=== PATIENT | female | born 1990 | race Caucasian/White ===

== ENCOUNTER → 2020-07-03 14:56 | Outpatient (CLI) | payer BC, SELFPAY ==
--- NOTE | ~2020-07-03 | US_ITS ---
EXAMINATION: US OB follow up EXAM DATE: 07/03/2020 15:27 INDICATION: anatomy, estimated weight. 2nd trimester. TECHNIQUE: Pelvic obstetrical transabdominal sonogram was performed by a technologist. There are mu ltiple grayscale and Doppler images available for interpretation. There are no prior studies for james zaragoza. FINDINGS: There is a single fetus identified in breech presentation with a heart rate of 146 beats pe r minute. The placenta is located in the anterior position. There is no sonographic evidence of retr oplacental hemorrhage identified. Placental margin to internal cervical os distance is 6.9 cm. Subje ctively expected amount of amniotic fluid. BIOMETRIC DATA: Biparietal diameter (BPD): 6.4cm ----------------> 26 weeks 0 days. Head circumference (HC): 23.5 cm ----------------> 5 weeks 4 days. Abdominal circumference (AC): 21.5 cm ----------> 26 weeks 0 days. Femur length (FL): 4.5 cm --------------------------> 25 weeks 0 days. These measurements are concordant. HC/AC ratio is 1.10 (The 5th -- 95th percentile range is 1.04-1.22. Estimated weight is 826 g +/- 124 g. This is the 39th percentile when the currently reported c linical gestation age 25 weeks 4 days, clinical estimated date of delivery (ANTHONY-OPE) 10/12/2020 is used . estimated gestational age based on measurements from this exam is 25 weeks 5 days, with an es timated date of delivery (ANTHONY-AUA) 10/11. Some additional anatomy was requested. Sonographically normal-appearing lips and nose, four-pam mber heart, three-vessel cord, legs and feet. IMPRESSION: 1. Single fetus in breech presentation with heart rate 146 beats per minute. 2. Estimated weight of 826 grams, 39th percentile using the currently reported clinical gestat ion age of 25 weeks 4 days, ANTHONY(OPE) 10/12/2020. 3. Additional anatomy confirmed as above. Reviewed, dictated and finalized at location B. COUNTER IMPRESSION: 1. Single fetus in breech presentation with heart rate 146 beats per minute. 2. Estimated weight of 826 grams, 39th percentile using the currently re ported clinical gestation age of 25 weeks 4 days, ANTHONY(OPE) 10/12/2020. 3. Additional anatomy confirmed as above.
== END ==
PROVIDERS: Visit Provider Obstetrics & Gynecology
DX: Z36.9 Encounter for antenatal screening, unspecified (principal); Z3A.25 25 weeks gestation of pregnancy
CPT/HCPCS: 76816

== ENCOUNTER 2020-09-06 08:41 | Observation (INO) | payer BC, SELFPAY ==
[2020-09-06] VITALS (9 sets, daily range): BP systolic 123–152; BP diastolic 74–97; PULSE 79–89; TEMP 36.6; BMI 34.4
--- NOTE | 2020-09-06 10:00 | P.PNOB_ITS ---
OB - Triage/Final Diagnosis Visit Information Date of evaluation: 09/06/20 Reason for evaluation: threatened labor Comments/Additional reasons for admission: I have assessed the risk for this patient, Shivani Carlson, and determined that [facility] Evaluation Vital signs: Vital Signs - 24 hr 09/06/20 09:06 09/06/20 09:15 09/06/20 09:30 Pulse Rate 80 89 86 Blood Pressure 138/97 H 142/81 H 148/79 H 09/06/20 09:45 Pulse Rate 85 Blood Pressure 152/95 H
[2020-09-06 10:05] LABS: Add Urine Microscopic? YES; Appearance Urine Cloudy (Clear); Bacteria Urine Trace /hpf; Bilirubin Urine Negative (Negative); Blood Urine Negative (Negative); Color Urine Yellow (Yellow); Glucose Urine UA Negative (Negative); Ketones Urine Negative (Negative); Leukocyte Esterase Ur Negative LEU/UL (Negative); Mucus Urine Rare /lpf; Nitrate Urine Negative (Negative); Protein Urine Negative (Negative); RBC Urine 0-2 /hpf (0-2); Specific Grav Ur 1.013 (1.001-1.035); Squamous Epithelial Cell Urine Moderate /hpf (Few); Urobilinogen Urine Negative mg/dL (<2.0); WBC Urine 0-3 /hpf
--- NOTE | 2020-09-06 10:23 | PC.NURSE ---
0958-Dr.Dalla Liu called, informed pt came in from the ER with c/o lower abdominal pain. Pt has had a couple contractions with some irritability that she is PO hydrating for. Informed of elevated bp's, orders received to send [facility] labs.
[2020-09-06 10:32] LABS: Basophils Percent Auto 0.3 % (0.2-1.2); Eosinophils Absolute Auto 0.3 K/mm3 (0-0.3); Eosinophils Percent Auto 2.5 % (0-4.4); Hematocrit 35.3 % (37.0-47.0); Hemoglobin 11.8 g/dL (12.0-15.0); Immature Granulocyte Absolute 0.14 K/mm3 (0.00-0.031); Immature Granulocyte Percent A 1.2 % (0-0.5); Lymphocytes Percent Auto 21.4 % (18.3-44.2); Mean Corpuscular HGB Conc 33.4 g/dl (32-36); Mean Corpuscular Hemoglobin 27.7 pg (26-34); Mean Corpuscular Volume 82.9 fl (80-100); Mean Platelet Volume 10.1 fl (7.4-10.4); Monocytes Absolute Auto 0.8 K/mm3 (0.1-0.6); Monocytes Percent Auto 7.1 % (2.6-8.5); Neutrophils Absolute Auto 7.6 K/mm3 (1.3-6.7); Neutrophils Percent Auto 67.5 % (45.5-73.1); Platelet Count Result 244 k/mm3 (150-375); Red Blood Count 4.26 M/mm3 (4.2-5.4); Red Cell Distribution Width 13.6 % (11.5-14.5); White Blood Count 11.2 K/mm3 (4.5-10.0)
[2020-09-06 10:45] LABS: Alanine Aminotransferase 26 U/L (4-35); Albumin Level 3.6 g/dL (3.5-5.1); Alkaline Phosphatase 118 U/L (38-126); Anion Gap 6 mmol/L (8-16); Aspartate Amino Transferase 25 U/L (14-36); Bilirubin,Total 0.2 mg/dL (0.2-1.3); Blood Urea Nitrogen 6 mg/dL (7-17); Calcium 8.8 mg/dL (8.4-10.2); Carbon Dioxide 22 mmol/L (22-30); Chloride 107 mmol/L (98-107); Estimated Glomerular Filt Rate > 60; Glucose 91 mg/dL (65-105); Potassium 3.9 mmol/L (3.4-5.0); Sodium 135 mmol/L (137-145); Uric Acid 4.1 mg/dL (2.5-7.5)
[2020-09-06 10:50] LABS: Creatinine Urine 46.7 mg/dL; Total Protein Urine Random 12 mg/dL; Ur Ttl Prot Creatinine Ratio 0.26 mg/mg (0-0.20)
--- NOTE | 2020-09-06 11:19 | OBADM ---
This patient, Shivani Carlson, admitted to the OB room OB Post 117 for observation. Patient/family oriented to hospital policies and general routines including ID bracelet, bed and alarms, visiting hours, pain management, procedures, bathroom and other care routines, personal items, smoking policy, room service/diet, and visiting hours. Patient/Family are encouraged to report perceived risks to care and to ask questions if they do not understand what they are told or what they should do.
--- NOTE | 2020-09-06 11:24 | PC.NURSE ---
1104-Dr.Dalla Liu called with lab results and bp's, order received to discharge pt home.
== END 2020-09-06 11:15 | disposition home or self-care (01) ==
PROVIDERS: Admitting Provider Obstetrics & Gynecology; Visit Provider Obstetrics & Gynecology
DX: O47.03 False labor before 37 completed weeks of gestation, third trimester (principal); Z3A.34 34 weeks gestation of pregnancy
CPT/HCPCS: 36415; 80053; 81001; 82570; 84156; 84550; 85025; G0378; G0379

== ENCOUNTER 2020-09-30 16:10 | Inpatient (IN) | payer BC, SELFPAY ==
[2020-09-30] VITALS (27 sets, daily range): BP systolic 92–152; BP diastolic 63–122; PULSE 83–149; TEMP 36.5–36.8; BMI 34.2
[2020-09-30 17:37] LABS: Basophils Percent Auto 0.2 % (0.2-1.2); Eosinophils Absolute Auto 0.1 K/mm3 (0-0.3); Eosinophils Percent Auto 1.1 % (0-4.4); Hematocrit 36.4 % (37.0-47.0); Hemoglobin 12.4 g/dL (12.0-15.0); Immature Granulocyte Absolute 0.06 K/mm3 (0.00-0.031); Immature Granulocyte Percent A 0.6 % (0-0.5); Lymphocytes Absolute Auto 1.94 K/mm3 (0.9-3.2); Lymphocytes Percent Auto 20.1 % (18.3-44.2); Mean Corpuscular HGB Conc 34.1 g/dl (32-36); Mean Corpuscular Hemoglobin 27.4 pg (26-34); Mean Corpuscular Volume 80.5 fl (80-100); Mean Platelet Volume 10.3 fl (7.4-10.4); Monocytes Absolute Auto 0.6 K/mm3 (0.1-0.6); Monocytes Percent Auto 5.8 % (2.6-8.5); Neutrophils Percent Auto 72.2 % (45.5-73.1); Platelet Count Result 226 k/mm3 (150-375); Red Blood Count 4.52 M/mm3 (4.2-5.4); Red Cell Distribution Width 13.4 % (11.5-14.5); White Blood Count 9.6 K/mm3 (4.5-10.0)
--- NOTE | 2020-09-30 17:38 | LDADM ---
This patient, Shivani Carlson, was admitted to Labor/Delivery/Recovery 105 on 09/30/20 at 16:10. Plans for labor, pain management and were discussed with patient. Patient/family oriented to hospital policies and general routines including ID bracelet, bed and alarms, visiting hours, pain management, procedures, bathroom and other care routines, personal items, smoking policy, room service/diet and guest tray routines, infant security routines, and visiting hours. Patient/Family are encouraged to report perceived risks to care and to ask questions if they do not understand what they are told or what they should do. See OBIX for further documentation.
[2020-09-30 17:48] LABS: Alanine Aminotransferase 72 U/L (4-35); Albumin Level 3.6 g/dL (3.5-5.1); Alkaline Phosphatase 169 U/L (38-126); Anion Gap 5 mmol/L (8-16); Aspartate Amino Transferase 56 U/L (14-36); Bilirubin,Total 0.3 mg/dL (0.2-1.3); Blood Urea Nitrogen 5 mg/dL (7-17); Calcium 8.9 mg/dL (8.4-10.2); Carbon Dioxide 19 mmol/L (22-30); Chloride 109 mmol/L (98-107); Estimated CRCL calculation 145 ml/min; Estimated Glomerular Filt Rate > 60; Glucose 93 mg/dL (65-105); Potassium 3.6 mmol/L (3.4-5.0); Sodium 133 mmol/L (137-145); Uric Acid 4.6 mg/dL (2.5-7.5)
[2020-09-30 19:06] LABS: Benzodiazepines Screen Urine Negative (Negative)
[2020-09-30 19:09] LABS: Barbiturate Screen Urine Positive (Negative)
[2020-09-30 19:11] LABS: Amphetamine Screen Urine Negative (Negative); Cannabinoid Screen Urine Positive (Negative); Cocaine Screen Urine Negative (Negative); Methadone Screen Urine Negative (Negative); Opiate Screen Urine Negative (Negative); Phencyclidine Screen Urine Negative (Negative)
--- NOTE | 2020-09-30 19:24 | WPDANESEPP ---
Anes - Eval Pre Procedure Procedure: Laboe epidural Date/Time: 09/30/20 19:24 Surgeon: Jhonny Preop Diagnosis: Abd pain with contractions Pre Op Diagnosis: Leaking Patient Data Age: 30 Gender: F Height: 5 ft 3 in Weight: 87.5 kg Last Vital Signs Temp 97.9 F 09/30/20 18:35 Pulse 93 09/30/20 18:15 BP 148/90 H 09/30/20 18:15 Allergies Allergy/AdvReac Type Severity Reaction Status Date / Time No Known Allergies Allergy Verified 09/17/20 15:39 Home Medications Medication Instructions Recorded Confirmed Type PNV cmb#95-ferrous fumarate-FA 1 tablet PO DAILY 09/17/20 09/30/20 History [] Laboratory Tests 09/30/20 09/30/20 09/30/20 17:29 17:29 17:29 WBC 9.6 K/mm3 K/mm3 (4.5-10.0) RBC 4.52 M/mm3 M/mm3 (4.2-5.4) Hgb 12.4 g/dL g/dL (12.0-15.0) Hct 36.4 % L % (37.0-47.0) MCV 80.5 fl fl (80-100) MCH 27.4 pg pg (26-34) MCHC 34.1 g/dl g/dl (32-36) RDW 13.4 % % (11.5-14.5) Plt Count 226 k/mm3 k/mm3 (150-375) MPV 10.3 fl fl (7.4-10.4) Immature Gran % (Auto) 0.6 % H % (0-0.5) Neut % (Auto) 72.2 % % (45.5-73.1) Lymph % (Auto) 20.1 % % (18.3-44.2) Andrew % (Auto) 5.8 % % (2.6-8.5) Eos % (Auto) 1.1 % % (0-4.4) Baso % (Auto) 0.2 % % (0.2-1.2) Lymph # (Auto) 1.94 K/mm3 K/mm3 (0.9-3.2) Andrew # (Auto) 0.6 K/mm3 K/mm3 (0.1-0.6) Eos # (Auto) 0.1 K/mm3 K/mm3 (0-0.3) Baso # (Auto) 0.0 K/mm3 K/mm3 (0.0-0.1) Abs Immat Gran (auto) 0.06 K/mm3 H K/mm3 (0.00-0.031) Absolute Neuts (auto) 7.0 K/mm3 H K/mm3 (1.3-6.7) Absolute Nucleated RBC 0.0 K/mm3 K/mm3 (0.0-0.012) Nucleated RBC % 0.0 % % (0.0-0.2) Sodium Potassium Chloride Carbon Dioxide Anion Gap BUN Creatinine Estim Creat Clear Calc Estimated GFR Glucose Uric Acid Cancelled Calcium Total Bilirubin AST ALT Alkaline Phosphatase Total Protein Albumin Urine Opiates Screen Urine Methadone Screen Ur Barbiturates Screen Ur Phencyclidine Scrn Ur Amphetamine Screen U Benzodiazepines Scrn Urine Cocaine Screen U Cannabinoids Screen RPR Pending Blood Type Antibody Screen 09/30/20 09/30/20 09/30/20 17:29 17:29 18:36 WBC RBC Hgb Hct MCV MCH MCHC RDW Plt Count MPV Immature Gran % (Auto) Neut % (Auto) Lymph % (Auto) Andrew % (Auto) Eos % (Auto) Baso % (Auto) Lymph # (Auto) Andrew # (Auto) Eos # (Auto) Baso # (Auto) Abs Immat Gran (auto) Absolute Neuts (auto) Absolute Nucleated RBC Nucleated RBC % Sodium 133 mmol/L L mmol/L (137-145) Potassium 3.6 mmol/L mmol/L (3.4-5.0) Chloride 109 mmol/L H mmol/L (98-107) Carbon Dioxide 19 mmol/L L mmol/L (22-30) Anion Gap 5 mmol/L L mmol/L (8-16) BUN 5 mg/dL L mg/dL (7-17) Creatinine 0.50 mg/dL L mg/dL (0.7-1.0) Estim Creat Clear Calc 145 ml/min ml/min Estimated GFR > 60 (59 - ) Glucose 93 mg/dL mg/dL (65-105) Uric Acid 4.6 mg/dL mg/dL (2.5-7.5) Calcium 8.9 mg/dL mg/dL (8.4-10.2) Total Bilirubin 0.3 mg/dL mg/dL (0.2-1.3) AST 56 U/L H U/L (14-36) ALT
--- NOTE | 2020-09-30 19:40 | PC.NURSE ---
uds results discussed w pt. pt states pt has been taking fioricet and admitts to smoking marijuana during pregnency. pt denies using any additonal substances.
--- NOTE | 2020-09-30 19:43 | PC.NURSE ---
order received to collect urinalysis from osborn catheter post epidural
[2020-09-30] MEDS: LACTATED RINGERS 1,000 ML 125 ML IV CONT (21:29)
[2020-09-30] MEDS: OXYTOCIN 30 UNITS/NS 500 ML 30 UNITS/500 ML BAG 6 UNITS IV CONT (21:29)
[2020-09-30] MEDS: fentaNYL CITRATE INJ (*CRX) 100 MCG/2 ML VIAL 50 MCG IV PUSH (23:49)
[2020-10-01] VITALS (150 sets, daily range): BP systolic 95–181; BP diastolic 46–132; PULSE 45–166; RESP 14–16; TEMP 36.2–37.5; O2SAT 84–100
[2020-10-01] MEDS: LACTATED RINGERS 1,000 ML 125 ML IV CONT ×2 (00:38→02:21)
[2020-10-01 04:56] LABS: Add Urine Microscopic? YES; Appearance Urine Cloudy (Clear); Bacteria Urine Trace /hpf; Bilirubin Urine Negative (Negative); Blood Urine Negative (Negative); Calcium Oxalate Crystals Urine Present /hpf; Color Urine Yellow (Yellow); Glucose Urine UA Negative (Negative); Ketones Urine 1+ mg/dL (Negative); Leukocyte Esterase Ur Negative LEU/UL (NEGATIVE); Mucus Urine Few /lpf; Nitrate Urine Negative (Negative); Protein Urine 1+ mg/dL (Negative); RBC Urine 0-2 /hpf (0-2); Specific Grav Ur 1.021 (1.001-1.035); Squamous Epithelial Cell Urine Occasional /hpf (Few); WBC Urine 0-3 /hpf (0-3)
[2020-10-01] MEDS: ONDANSETRON INJ 4 MG/2 ML VIAL IV PUSH (05:41)
--- NOTE | 2020-10-01 06:38 | PM.IMHP ---
H&P: HPI History of Present Illness Date/Time: 10/01/20 06:38 Patient presents at term in active labor with spontaneous rupture membranes prior to admission. Her labor has been unremarkable thus far Chief Complaint: labor at term Review of Systems Review of Systems: All systems reviewed & are unremarkable except as noted in HPI and below PMFSH Past Medical History Medical History Depression History of smoking Over weight and not yet delivered Seizure Surgical History Surgical History S/P cholecystectomy Family History Family History Other No pertinent family history Social History Social History Smoking status: Former smoker Second hand tobacco smoke exposure: Yes Smoking end date: 02/09/20 Substance use: current Gender identity (if verbalized by the patient): Female Spiritual care concerns: No Meds Home Medications and Allergies Home Medications Medication Instructions Recorded Confirmed Type PNV cmb#95-ferrous fumarate-FA 1 tablet PO DAILY 09/17/20 09/30/20 History [] Allergies Allergy/AdvReac Type Severity Reaction Status Date / Time No Known Allergies Allergy Verified 09/17/20 15:39 Vital Signs Vital Signs - 24 hr 09/30/20 16:38 09/30/20 16:45 09/30/20 16:55 Temperature 97.8 F Pulse Rate 97 106 H Blood Pressure 145/97 H 151/97 H Pulse Oximetry 09/30/20 17:00 09/30/20 17:46 09/30/20 18:00 Temperature Pulse Rate 104 H 97 112 H Blood Pressure 137/97 H 125/63 134/92 H Pulse Oximetry 09/30/20 18:15 09/30/20 18:35 09/30/20 19:29 Temperature 97.9 F Pulse Rate 93 90 Blood Pressure 148/90 H 151/102 H Pulse Oximetry 09/30/20 19:31 09/30/20 19:46 09/30/20 20:30 Temperature 98.2 F Pulse Rate 98 84 Blood Pressure 143/122 H 136/85 Pulse Oximetry 09/30/20 20:54 09/30/20 21:01 09/30/20 21:15 Temperature Pulse Rate 97 90 109 H Blood Pressure 135/85 114/97 H 132/95 H Pulse Oximetry 09/30/20 21:31 09/30/20 21:45 09/30/20 22:01 Temperature Pulse Rate 104 H 93 83 Blood Pressure 135/96 H 141/94 H 136/91 H Pulse Oximetry 09/30/20 22:06 09/30/20 22:16 09/30/20 22:31 Temperature 98.3 F Pulse Rate 83 86 86 Blood Pressure 136/91 H 135/76 152/83 H Pulse Oximetry 09/30/20 22:46 09/30/20 22:55 09/30/20 23:01 Temperature 97.7 F Pulse Rate 90 149 H Blood Pressure 142/85 H 92/73 L Pulse Oximetry 09/30/20 23:15 09/30/20 23:31 09/30/20 23:46 Temperature Pulse Rate 89 88 83 Blood Pressure 118/86 125/106 H 142/87 H Pulse Oximetry 10/01/20 00:01 10/01/20 00:16 10/01/20 00:31 Temperature Pulse Rate 93 73 82 Blood Pressure 145/87 H 144/86 H 142/91 H Pulse Oximetry 10/01/20 00:36 10/01/20 00:41 10/01/20 00:42 Temperature Pulse Rate 71 91 Blood Pressure 154/132 H 158/96 H Pulse Oximetry 100 100 10/01/20 00:46 10/01/20 00:47 10/01/20 00:49 Temperature Pulse Rate 93 82 90 Blood Pressure 157/101 H 154/84 H 149/84 H Pulse Oximetry 99 10/01/20 00:51 10/01/20 00:52 10/01/20 00:54 Temperature Pulse Rate 96 81 94 Blood Pressure 142/76 H 151/88 H 153/105 H Pulse Oximetry 100 10/01/20 00:55 10/01/20 00:56 10/01/20 00:57 Temperature Pulse Rate 86 101 H Blood Pressure 145/82 H 131/77 Pulse Oximetry 98 10/01/20 00:58 10/01/20 01:00 10/01/20 01:01 Temperature Pulse Rate 84 100 Blood Pressure 140/91 H 143/84 H Pulse Oximetry 98 10/01/20 01:03 10/01/20 01:06 10/01/20 01:08 Temperature Pulse Rate 105 H 99 101 H Blood Pressure 138/73 134/77 133/82 Pulse Oximetry 99 98 10/01/20 01:10 10/01/20 01:13 10/01/20 01:15 Temperature Pulse Rate 102 H 123 H 116 H Blood Pressu
--- NOTE | 2020-10-01 07:01 | PM.OBPRVD ---
OB - Delivery Note Procedure Delivery date: 10/01/20 Intrapartal events: None Induction method: none Delivery monitor: external FHT Route of delivery: Episiotomy description: None Laceration Description: None Specimen: No Quantitative Blood Loss (ml): 58 Disposition: floor Baby Date of : 10/01/20 Time of : 06:52 Weeks of gestation at delivery: 39 Infant gender: Female Weight (pounds): 6 Weight (ounces): 6 presentation: vertex position: Right Occiput Anterior Placenta delivery description: Spontaneous cord vessel description: 3 Vessels score one minute: 9 score five minutes: 9
[2020-10-01] MEDS: OXYTOCIN 30 UNITS/NS 500 ML 30 UNITS/500 ML BAG 125 UNITS IV CONT (07:18)
[2020-10-01] MEDS: IBUPROFEN 600 MG TABLET PO ×3 (08:54→20:25)
[2020-10-01] MEDS: MULTIVIT/MIN/PREN/FOL AC/IRON TABLET 1 TAB PO (08:54)
[2020-10-01] MEDS: WITCH HAZEL 40 PADS 1 PAD TOPICAL (08:56)
[2020-10-01 09:27] LABS: Rapid Plasma Reagin Non-Reactive (NonReactive)
--- NOTE | 2020-10-01 10:04 | OBPPTRN ---
0923 Patient transferred to post room #285 via W/C. Support person present. Oriented to unit, room, information board, rooming in, admission packet and security measures. Patient verbalizes understanding.
--- NOTE | 2020-10-01 10:10 | PC.NURSE ---
Mother called out for assist with feeding. Mother reports she struggled with latch for first feeding. Nipples have low profile, demonstrated how to roll out before latch. Reviewed feeding cues, frequencies, duration of feedings, feeding elimination flow sheet, and signs of adequate intake. Demonstrated stimulation techniques to wake for feeding. Assisted with to breast. Reviewed positioning/alignment in cross cradle, holding breast in ?U? hold and guided asymmetrical latch on. Several attempts before able to latch correctly. nursed sleepily at first with occasional swallowing noted. Ad vised to stimulate while feeding, infant increased to good rhythmic draws with freq swallowing noted. Reviewed signs of a correct latch, effective nursing and suck swallow ratio. was able to maintain latch without discomfort to mother. would slip to shallow latch, mother reports tenderness. Demonstrated how to adjust latch more deeply while feeding. Mother reports she can feel change in latch and has no tenderness. Nipple care reviewed of lanolin after feedings, warm compresses and gel pads as needed. Suggested mother stimulate while feeding to increase stimulate, increase intake and to assist with maintaining deep latch. Instructed mother to call out for RN assistance if she is unable to latch for feeding or she has discomfort with nursing. Instructed feeding should be initiated three hours from start of last feeding or if feeding cues are noted before. Mother voiced understanding of information shared.
--- NOTE | 2020-10-01 13:50 | PC.NURSE ---
1530 Upon entering mother making eager attempts to latch . Assisted with infant to breast. Reviewed positioning/alignment in cross cradle, holding breast in ?U? hold and guided asymmetrical latch on. Several attempts infant unable to draw nipple in deeply for correct latch. Right nipple has a low profile and will draw back in if had is placed to close to areola. Football and attempt to left breast unsuccessful. Infant tends to keep tongue up and not allow nipple in for deep latch. Offered and explained the nipple shield. Nipple shield provided to mother due to ineffective latch. Instructions given on application and cleaning of shield. Discussed nipple shield precautions and possible complications. Patient able to return demonstration on proper application of shield. Discussed the need to initiate pumping if infant continues to nurse with the shield. Patient verbalizes understanding. With shield in place, infant was able to latch deeply. Infant nursed eagerly, with steady draws and frequent swallowing for bursts followed with long pausing. Reviewed signs of a correct latch, effective nursing and suck swallow ratio. Suggested mother stimulate while feeding to increase stimulate, increase intake and to assist with maintaining deep latch. Infant was able to maintain latch without discomfort to mother. Demonstrated how to adjust latch more deeply while feeding. . Nipple care reviewed of lanolin after feedings, warm compresses as needed. Instructed mother to call out for RN assistance if she is unable to latch for feeding or she has discomfort with nursing. Instructed feeding should be initiated three hours from start of last feeding or if feeding cues are noted before. Mother voiced understanding of information shared.
--- NOTE | 2020-10-01 15:13 | PC.NURSE ---
1330 Mother called out for assist with feeding. Demonstrated stimulation techniques to wake for feeding. Assisted with infant to breast. Reviewed positioning/alignment in cross cradle, holding breast in ?U? hold and guided asymmetrical latch on. Infant sleepy making weak attempts. Suggested to skin to skin for 15-20 minutes and attempt calling out for assist before if needed.
--- NOTE | 2020-10-01 15:25 | PCCCNOTE ---
CC met with pt. this morning to discuss discharge planning. Pt.'s current D/C plan is to return home with her boyfriend/FOB and friend. Pt. states that she is independent with ADLs and ambulation. She has no medical equipment. Pt. confirms that she has everything she needs to safely bring baby home. Pt. is current with [facility] and states she will attempt to breast feed baby. Pt. has a pneumatic tool operator set up for baby and confirms she has an appointment (Dr. Johnson, [facility]). Pt. denies any D/C needs and denies any prior DCFS cases. Pt. did test positive for Marijuana and barbiturates. Pt. states that she has a prescription that would lead to the positive Barbiturates result. Pt. confirms that she used Marijuana throughout the to assist with nausea, appetite, and sleep. Pt. and baby are both doing well and bonding in the room. CC completed online DCFS report, pt.'s intake ID is [id number]. Will follow.
[2020-10-02 04:00] VITALS: BP 114/74; PULSE 92; RESP 14; TEMP 37.1
[2020-10-02 06:02] LABS: Hematocrit 31.9 % (37.0-47.0); Hemoglobin 10.7 g/dL (12.0-15.0)
--- NOTE | 2020-10-02 07:30 | P.DS_ITS ---
DS: Admitting Diagnosis Admitting Diagnosis Admitting Diagnosis: term iup DS: Summary Hospital Course Hospital Course: The patient was admitted in active labor. She underwent spontaneous vaginal delivery. Her hospital course was unremarkable. She remained afebrile. She was up, ambulating, breast-feeding, eating a regular diet, and generally without complaints Time Spent with Patient Time attestation: Total time spent providing and/or coordinating discharge services: Exam Const: General: no acute distress Eyes: General: appearance normal, both eyes and all related structures Neck: Neck: supple and no JVD Thyroid: thyroid normal Resp: Effort & Inspection: normal respiratory effort Auscultation: clear to auscultation bilaterally Cardio: Rate: regular rate Rhythm: regular rhythm GI: Inspection: non-distended GI Palp: Yes Soft to palpation, No Tenderness to palpation present (GI) and No Guarding due to palpation present (GI) Auscultation: normal bowel sounds : General: Yes bladder normal to palpation External Female Exam: normal external appearance Speculum Exam - Vagina: normal vaginal discharge and No vaginal bleeding Speculum Exam - Cervix: nontender Bimanual exam- vagina & uterus: bladder normal to palpation and No Cervical tenderness present OB/external & speculum: No vaginal bleeding Skin: General skin exam: no rashes or lesions noted Extrem: General: normal to inspection and no edema Psych: Mental Status: mental status grossly normal Affect: normal affect DS: Data Data Completed and Pending Labs on day of discharge: Labs from last 24 hours 10/02/20 09/30/20 04:01 17:29 Hgb 10.7 L Hct 31.9 L RPR Non-reactive Discharge Plan Discharge Attending physician on discharge: Bob Sandoval Discharging Clinician: Bob Sandoval Patient Disposition: Home, Self-Care Activity: may shower, no straining and pelvic rest Diet: heart healthy Wound Care Instructions: follow printed instructions Patient Instructions: Antibiotic Form Stand Alone Forms: General Discharge Information Follow-up/Referrals: Bob Sandoval MD [Physician] - Discharge Medications: Continued PNV cmb#95-ferrous fumarate-FA [] 28 mg iron- 800 mcg Tablet 1 tablet PO DAILY RF: 0 Date of admission: 09/30/20 16:10 Primary Care Provider: PHYSICIAN,EDUCATION PROGRAM MANAGER Admitting Provider: Bob Sandoval Attending physician on admission: Bob Sandoval Condition: Stable
--- NOTE | 2020-10-02 07:33 | PM.OBPNVD ---
OB - PN: Subj Subjective Date/time seen: 10/02/20 07:33 Patient comments: no complaints and pain well controlled baby status: doing well and nursing well OB - PN: Obj Data Labs CBC & Chem 7: 10/02/20 04:01 09/30/20 17:29 Labs: Laboratory Results - last 24 hr 09/30/20 10/02/20 17:29 04:01 Hgb 10.7 L Hct 31.9 L RPR Non-reactive OB - PN A/P Plan day: 1 Plan: routine care, discharge home and follow up 6 weeks Time Spent With Patient Time: Total time spent is greater than 50% in coordination of care (as documented) at patient's floor/unit and/or counseling patient: Time with patient: less than 15 minutes Review of Systems Review of Systems: All systems reviewed & are unremarkable except as noted in HPI and below Exam Const: General: no acute distress Eyes: General: appearance normal, both eyes and all related structures Neck: Neck: supple and no JVD Thyroid: thyroid normal Resp: Effort & Inspection: normal respiratory effort Auscultation: clear to auscultation bilaterally Cardio: Rate: regular rate Rhythm: regular rhythm GI: Inspection: non-distended GI Palp: Yes Soft to palpation, No Tenderness to palpation present (GI) and No Guarding due to palpation present (GI) Auscultation: normal bowel sounds : General: Yes bladder normal to palpation External Female Exam: normal external appearance Speculum Exam - Vagina: normal vaginal discharge and No vaginal bleeding Speculum Exam - Cervix: nontender Bimanual exam- vagina & uterus: bladder normal to palpation and No Cervical tenderness present OB/external & speculum: No vaginal bleeding Skin: General skin exam: no rashes or lesions noted Extrem: General: normal to inspection and no edema Psych: Mental Status: mental status grossly normal Affect: normal affect
[2020-10-02] MEDS: MULTIVIT/MIN/PREN/FOL AC/IRON TABLET 1 TAB PO (07:36)
[2020-10-02] MEDS: IBUPROFEN 600 MG TABLET PO ×2 (07:36→17:45)
[2020-10-02] MEDS: DOCUSATE SODIUM 100 MG CAPSULE PO ×2 (07:36→17:45)
[2020-10-02 08:20] VITALS: BP 112/87; PULSE 96; RESP 16; TEMP 36.9; O2SAT 99
--- NOTE | 2020-10-02 08:54 | WPDANLDPN2 ---
Anes-Prog Note L&D Date/Time: 10/02/20 08:54 Comfortable throughout: labor and delivery Neuraxial method: epidural Epidural/Spinal procedure site: clean & non-tender Neuro status: Neuro function grossly intact. Cardiovascular status: normal Respiratory status: normal Airway patency: baseline Mental status: baseline Post-Op hydration status: normal Vital Signs: Last Vital Signs Temp 37.1 C 10/02/20 04:00 Pulse 92 10/02/20 04:00 Resp 14 10/02/20 04:00 BP 114/74 10/02/20 04:00 Pulse Ox 98 10/01/20 16:30 Pain score (VAS): 2 Post-procedural complaints: none Patient feedback: Patient satisfied with anesthetic care.
--- NOTE | 2020-10-02 14:16 | PC.NURSE ---
0830 Consult with pt., mother reports requires nipple shield for all feedings. Mother has tender nipples with feeding. Left nipple has slight bruising. Discussed pumping if continuing to use shield. Will assist with pump thru her insurance. Requested mother call out next feeding.
--- NOTE | 2020-10-02 14:19 | PC.NURSE ---
1230Mother called out for assist with feeding. Assisted with infant to breast. Reviewed positioning/alignment in cross cradle, holding breast in ?U? hold and guided asymmetrical latch on. was unable to latch correctly without shield. With shield in place, infant was able to latch. nursed sleepily with a few steady bursts of draws and occasional swallowing noted in 15 minutes observed. Reviewed signs of a correct latch, effective nursing and suck swallow ratio. Infant would slip to shallow latch, mother reports tenderness. Demonstrated how to adjust latch more deeply while feeding. Mother reports she can feel change in latch and has no tenderness. Suggested mother stimulate while feeding to increase stimulate, increase intake and to assist with maintaining deep latch. Nipple care reviewed of lanolin after feedings, warm compresses as needed. Discussed effective vs ineffective feeding. Advised infant is not effective feeding. Mother reports this is a typical feeding, may be more awake and have more suckling due to assist with stimulation to keep awake. Feeding Plan-- suggested mother begin to supplement 20 mls of EBM/formula after each feeding and pump for 15 minutes to stimulate milk supply. Reviewed signs when infant may be ready to increase supplementation, advised to increase to infant satisfaction. Reviewed signs when may be ready to decrease/discontinue supplementation. Suggested mother not discontinue supplement until infant feeding has been observed by WIC, follow up RN, or LC. Mother voices understanding Mother is planning for 24 hour discharge. Mother is feeding as required and waking infant to feed if needed. is currently meeting outcomes for weight, output, jaundice and feeding frequencies. Mother states she feels confident to continue current feeding plan of putting to breast, supplementation and pumping at home. Reviewed transition to breast milk, signs of adequate intake, and engorgement/relief. Instructed to call ICP if intake/output less than required. Reviewed regular medications mother is taking. Information provided per Daina. Reviewed community resources on the [facility] website and in the Mom/Baby guide. Information on outpatient services provided. Mother has no further questions at this time.
[2020-10-02] MEDS: ACETAMINOPHEN 325 MG TABLET 650 MG PO (17:46)
--- NOTE | 2020-10-02 19:09 | PC.NURSE ---
1345 Pt stated that her SO the FOB tested positive for Covid today. His test was Thursday09/30/2020 his results came today. She wants to know what she needs to do? [address] Lopez with Pediatrics and informed him of this. He called back @ 1418. He stated Mom and infant should isolate from FOB. Mom should wear a mask around . Call the OB and see what he states. [address] Antionette Liu and informed him of the earlier information. He Stated the same as the Pedi and that mom should watch for S&S of Covid and if she experiences any she should get tested. This was added to Moms D/C instructions that she signed.
== END 2020-10-02 18:50 | disposition home or self-care (01) | DRG 807 ==
LOC: ANHLDR 16:49 → ANHOB2 10-01 09:27
PROVIDERS: Admitting Provider Obstetrics & Gynecology; Visit Provider Obstetrics & Gynecology
DX: O14.94 Unspecified pre-eclampsia, complicating childbirth (principal); Z37.0 Single live birth; Z3A.38 38 weeks gestation of pregnancy
CPT/HCPCS: 36415; 80053; 80307; 81001; 84550; 85014; 85018; 85025; 86592; 86850; 86900; 86901; A9270; J2405; J2590; J2795; J3010; J7120

== ENCOUNTER 2020-12-04 12:28 | Outpatient (CLI) | payer OTHER, SELFPAY ==
--- NOTE | ~2020-12-04 | XR_ITS ---
EXAMINATION: XR chest 2V 12/04/2020 12:54 INDICATION: Cough for 3 months PROCEDURE: 2 view chest COMPARISON: No prior studies for comparison. FINDINGS: The lungs are clear. The cardiomediastinal silhouette is within normal limits. There are no pleural effusions. There is no pneumothorax suspected. There are cholecystectomy clips. IMPRESSION: 1: NO ACUTE CARDIOPULMONARY DISEASE. Reviewed, dictated and finalized at location A.
== END 2020-12-04 12:29 | disposition home or self-care (01) ==
LOC: CHSIMG 12:32
PROVIDERS: PCP Physician Assistant; Visit Provider Family Medicine
DX: R05 Cough (principal)
CPT/HCPCS: 71046

== ENCOUNTER 2021-01-16 09:02 | Outpatient (CLI) | payer OTHER, SELFPAY | END 2021-01-16 09:03 | disposition home or self-care (01) | LOC: CHSCARD 09:04 | PROVIDERS: PCP Nurse Practitioner Psychiatric/Mental Health; Visit Provider Nurse Practitioner Psychiatric/Mental Health | DX: R05 Cough (principal) | CPT/HCPCS: 99199 ==

== ENCOUNTER 2021-01-16 09:33 | Emergency (ER) | payer OTHER, SELFPAY ==
--- NOTE | ~2021-01-16 | XR_ITS ---
EXAMINATION: XR chest 2V EXAM DATE: 01/16/2021 11:33 INDICATION: Dyspnea, cough . TECHNIQUE: Frontal and lateral projections of the chest obtained and reviewed. Comparison is made to prior examination from 04/06/2021. FINDINGS: The lungs are clear. There are no pleural effusions. The cardiomediastinal silhouette is within normal limits. There is no pneumothorax suspected. The bones and soft tissues are unremarkab le. IMPRESSION: No acute cardiopulmonary findings. Reviewed, dictated and finalized at location A.
[2021-01-16 09:50] VITALS: BP 142/87; PULSE 79; RESP 20; TEMP 36.5; O2SAT 98
--- NOTE | 2021-01-16 10:24 | ED.SOB ---
HPI - SOB/Dyspnea General Chief Complaint: Shortness of Breath/Dyspnea Stated Complaint: COUGH Time Seen by Provider: 01/16/21 10:25 Source: patient Mode of arrival: ambulatory Limitations: no limitations History of Present Illness HPI Narrative: 30-year-old woman who is 14 weeks came to the emergency department from a pulmonary function test for increasing shortness of breath. Cough has been present for 2 weeks and is productive of yellow and occasionally brown-tinged sputum. She states that after the of her baby she had similar cough for months which resolved with steroids and antibiotics. She had approximately 1 month free of symptoms, she states. She has no history of lung disease however is a former smoker. She is taking control pills. MD elicited complaint: shortness of breath, cough and chest pain (With cough) Onset (ago): week(s) (2) Timing: constant Severity: moderate Exacerbating factors: nothing Relieving factors: nothing Associated symptoms: chest pain and cough Treatment prior to arrival: none Related Data Home oxygen amount: none Home Medications Medication Instructions Recorded Confirmed PNV cmb#95-ferrous fumarate-FA 1 tablet PO DAILY 09/17/20 01/16/21 [] albuterol sulfate 2 puff INHALATION Q4-5H PRN 01/16/21 01/16/21 levonorgest-eth.estradiol-iron 1 tablet PO DAILY 01/16/21 01/16/21 [Balcoltra] Allergies Allergy/AdvReac Type Severity Reaction Status Date / Time No Known Allergies Allergy Verified 09/17/20 15:39 Review of Systems Review of Systems: All systems reviewed & are unremarkable except as noted in HPI and below Constitutional: Constitutional: Denies chills and Denies fever(s) Eyes: Eyes: Denies change in vision and Denies photophobia ENT: Denies dysphagia, Reports nasal congestion and Denies sore throat Cardiovascular: Cardiovascular: Reports as per HPI, Reports chest pain and Denies radiating jaw, neck or arm pain Respiratory: Respiratory: Reports cough, Reports dyspnea and Denies wheezing Gastrointestinal: Gastrointestinal: Denies abdominal pain, Denies diarrhea, Denies nausea and Denies vomiting Genitourinary: Genitourinary: Denies nocturia and Denies dysuria Musculoskeletal: Musculoskeletal: Denies back pain, Denies arthralgias and Denies joint swelling Integumentary/Breasts: Skin/Breast: Denies pruritus, Denies erythema and Denies rash Neurologic: Denies vertigo, Denies dizziness and Denies syncope Hematologic/Lymphatic: Hematologic/Lymphatic: Denies easy bleeding and Denies easy bruising Allergic/Immunologic: Allergic/Immunologic: Denies lip swelling and Denies throat swelling PMFSH Past Medical History Medical History Depression History of smoking Over weight and not yet delivered Seizure Surgical History Surgical History S/P cholecystectomy Family History Family History Other No pertinent family history Social History Social History Smoking status: Former smoker Second hand tobacco smoke exposure: Yes Smoking end date: 02/09/20 Substance use: current Gender identity (if verbalized by the patient): Female Spiritual care concerns: No Exam Const: General: healthy appearing, no acute distress and alert Orientation/consciousness: patient oriented x3 Limitations: no limitations HENMT: Ears: external ears normal, TM's normal bilaterally and EAC's normal General nose exam: Normal nares present Face and sinus: normal facial exam Mouth: Yes moist mucous membranes Throat: posterior oropharynx normal Eyes: Conjunctivae: conjunctivae normal Pupils: Equal, round and reactive pupils present EOM: EOMs intact bilaterally Resp: Effort & Inspection: normal respiratory effort and no
[2021-01-16 10:37] LABS: SARS-CoV-2 Ag Negative (Negative)
[2021-01-16 10:49] LABS: Hematocrit 43.5 % (35.0-49.0); Hemoglobin 14.2 g/dL (12.0-15.0); Mean Corpuscular HGB Conc 32.6 g/dL (32.0-36.0); Mean Corpuscular Hemoglobin 27.2 pg (27.0-31.0); Mean Corpuscular Volume 83.3 fL (78.0-102.0); Mean Platelet Volume 9.9 fl (9.2-11.8); Platelet Count Result 257 K/mm3 (150-420); Red Blood Count 5.22 M/mm3 (4.20-5.40); Red Cell Distribution Width 14.9 % (11.6-14.4); White Blood Count 8.6 K/mm3 (4.8-10.8)
[2021-01-16 11:04] LABS: Alanine Aminotransferase 83 U/L (14-59); Albumin Level 3.9 g/dL (3.4-5.0); Alkaline Phosphatase 55 U/L (46-116); Anion Gap 9 mmol/L (8-16); Aspartate Amino Transferase 20 U/L (15-37); Bilirubin,Total 0.3 mg/dL (0.00-1.00); Blood Urea Nitrogen 13 mg/dL (7-18); Carbon Dioxide 26 mmol/L (21-32); Chloride 107 mmol/L (98-108); D Dimer 0.19 mg/L (0.19-0.50); Estimated CRCL calculation 95 ml/min; Estimated Glomerular Filt Rate > 60; Glucose 82 mg/dL (70-99); INR 0.9; Osmolality Calculated 293 mOsm/kg (285-295); Partial Thromboplastin Time 27.7 SEC (23.90-30.70); Potassium 4.4 mmol/L (3.5-5.1); Prothrombin Time 10.1 Seconds (9.50-12.10); Sodium 142 mmol/L (136-145); Total Protein 7.5 g/dL (6.4-8.2)
[2021-01-16 11:09] LABS: Band Neutrophils Percent 0 % (0-6); Eosinophils Absolute Manual 0.86 K/mm3 (0.02-0.5); Eosinophils Percent Manual 10 % (1-6); Lymphocytes Absolute Manual 2.32 K/mm3 (1.1-4.5); Lymphocytes Percent Manual 27 % (18-44); Monocytes Absolute Manual 0.25 K/mm3 (0.1-0.90); Monocytes Percent Manual 3 % (3-9); Neutrophils Absolute Manual 5.16 K/mm3 (1.7-7.2); Neutrophils Percent Manual 60 % (46-73); Total Cells Counted 100
[2021-01-16 11:10] LABS: Platelet Estimate Adequate (Adequate)
[2021-01-16 11:56] VITALS: BP 136/88; PULSE 82; RESP 14; O2SAT 98
[2021-01-16] MEDS: IPRATROPIUM 0.5 MG/ALBUTEROL SULFATE 2.5 MG AMPUL.NEB 3 ML INHALATION (12:35)
[2021-01-16 12:36] VITALS: PULSE 72; RESP 16; O2SAT 98
[2021-01-16 12:42] VITALS: PULSE 89; RESP 14; O2SAT 100
[2021-01-16 12:48] VITALS: BP 149/102; PULSE 79; RESP 16; O2SAT 98
[2021-01-16] MEDS: predniSONE 20 MG TABLET 60 MG PO (12:50)
== END 2021-01-16 12:55 | disposition home or self-care (01) ==
PROVIDERS: Emergency Provider Emergency Medicine; PCP Nurse Practitioner Psychiatric/Mental Health
DX: J98.01 Acute bronchospasm (principal); Z20.822 Contact with and (suspected) exposure to COVID-19
CPT/HCPCS: 36415; 71046; 80053; 85025; 85380; 85610; 85730; 87426; 94640; 99283; 99284; C9803; J7512; L2112

== ENCOUNTER 2021-01-28 13:05 | Outpatient (CLI) | payer OTHER, SELFPAY ==
[2021-01-28 14:23] LABS: SARS-CoV-2 Ag Negative (Negative)
[2021-01-28 15:15] LABS: SARS-CoV-2 RNA PCR Negative (Negative)
== END 2021-01-28 13:06 | disposition home or self-care (01) ==
LOC: CHSLAB 13:08
PROVIDERS: PCP Nurse Practitioner Psychiatric/Mental Health; Visit Provider Family Medicine
DX: Z20.822 Contact with and (suspected) exposure to COVID-19 (principal)
CPT/HCPCS: 87426; C9803; U0003; U0005

== ENCOUNTER 2021-03-28 08:59 | Outpatient (CLI) | payer OTHER, SELFPAY ==
--- NOTE | 2021-04-01 08:29 | WPDPFTINT ---
PFT Procedure Performed PFT Procedure Performed Spirometry with Pre/Post Bronchodilator Plethysmography (Lung Vol) Diffusing Cap (DLCO) Flow Vol Loop PFT Interpretation DOS: 03/28/2021 REQUESTING: CHARANJIT Orona; MD Nino REASON FOR TESTING: Cough PULMONARY FUNCTION TESTS Results are reliable and reproducible. Spirometry: The pre-bronchodilator is FEV1 115% predicted, normal, 3.44 L. FVC is 120%. FEV1% is 93%. The FEF 25-75% is 94% predicted. After bronchodilator there is a 21% increase in the FEF 25-75%. Lung volumes: Total lung capacity is 105% normal. The residual volume is 70% normal. RV/TLC is within the normal range. There is no hyperinflation or air trapping. Airway resistance elevated, 295%. Diffusion: DLCO 94% predicted, normal. Flow volume loop: Flow volume loop is normal after bronchodilator administration IMPRESSION: There is normal spirometry with a mild small airway obstructive defect with good response to bronchodilator. Normal lung volumes and diffusion. Clinical correlation is recommended. In the proper setting, this may be consistent with asthma. Cammy Lord MD
== END 2021-03-28 09:00 | disposition home or self-care (01) ==
LOC: CHSCARD 09:01
PROVIDERS: PCP Nurse Practitioner Psychiatric/Mental Health; Visit Provider Nurse Practitioner Psychiatric/Mental Health
DX: R05.9 Cough, unspecified (principal)
CPT/HCPCS: 94060; 94726; 94729